=== PATIENT | male | born 1980 | race Caucasian/White ===

== ENCOUNTER 2019-10-16 20:26 | Observation (INO) ==
--- NOTE | 2019-10-16 20:58 | PROVIDER DOCUMENTATION ---
HPI-EENT General - General Chief Complaint: Abscess Stated Complaint: ABNORMAL LABS Time Seen by Provider: 10/16/19 20:41 Source: patient Allergies/Adverse Reactions: Patient Allergies Allergy/AdvReac Type Severity Reaction Status Date / Time No Known Allergies Allergy Verified 10/16/19 20:36 - History of Present Illness-EENT General Nature of Presenting Problem: 39 yom with no PMH presents with c/o sore throat on rec of urgent care, he reports the pain has been present x 2 days and is getting worse. he was seen at urgent care and strep was negative. He reports it is hard to swallow and feels hard to breathe at time. he is in NAD on exam. EENT Location: reports: throat Quality of Pain: reports: burning, fullness Severity: reports: severe Onset/Duration: reports: 2 days ago Timing: reports: still present Prearrival Treatment: Initiated no prearrival treatment Associated Symptoms: reports: tooth pain, voice change - Throat/Dental Throat/Dental Problem Symptoms: reports: sore throat, trouble breathing (at times), throat swelling, unable to swallow Recently seen a dentist or have an appointment?: No Review of Systems - Adult - REVIEW OF SYSTEMS - ADULT Constitutional: reports: no symptoms reported. denies: see HPI, chills, fever, fatique, night sweats, weight gain, weight loss, other Eyes: reports: no symptoms reported. denies: see HPI, discharge, dry eyes, decreased vision, blurred vision, double vision, eye pain, redness, other Ears, Nose, Mouth & Throat: reports: see HPI, throat pain, throat swelling. denies: no symptoms reported, ear discharge, ear pain, hearing loss, tinnitus, epistaxis, sinus problem, nose pain, loose teeth, mouth/dental pain, mouth swelling, hoarseness, other Cardiovascular: reports: no symptoms reported. denies: see HPI, chest pain, edema, heart murmur, irregular heart rate, orthopnea, palpitations, poor circulation, PND, syncope, other Respiratory: reports: no symptoms reported. denies: see HPI, chronic cough, cough, dyspnea on exertion, excessive sputum production, hemoptysis, pleurisy, shortness of breath, wheezing, other Gastrointestinal: reports: no symptoms reported. denies: see HPI, abdominal pain, hematemesis, constipation, diarrhea, difficulty swallowing, frequent heartburn, nausea, poor appetite, rectal bleeding, vomiting, other Genitourinary: reports: no symptoms reported. denies: see HPI, dysuria, discharge, frequency, flank pain, frequent UTI's, hematuria, hesitency, incontinence, urinary retention, urgency, other Musculoskeletal: reports: no symptoms reported. denies: see HPI, bone pain, back pain, frequent leg cramps, joint pain, joint swelling, muscle aches, muscle weakness, neck pain, other Integumentary: reports: no symptoms reported. denies: see HPI, hives, hair loss, itching, mole changes, nail changes, rash, skin sores/ulcer, skin thickening, other Neurological: reports: no symptoms reported. denies: see HPI, ataxia, diz ziness/vertigo, headache/migraines, loss of balance, numbness, paresthesia, seizure, slurred speech, syncope, tremors, other Psychiatric: reports: no symptoms reported. denies: see HPI, anxiety, anti- depressant use, alcohol/drug dependence, depression, emotional problems, i nsomnia, panic attacks, suicidal thoughts, other Endocrine: reports: no symptoms reported. denies: see HPI, change in skin pigment, excessive sweating, goiter, cold intolerance, heat intolerance, increased hunger, increased thirst, polyuria, other Hematologic/Lymphatic: reports: no symptoms reported. denies: see HPI, blood clots, easy bruising, low blood count, lymphedema, prolonged bleeding, swollen lymph nodes, transfusions, other Allergic/Immunologic: reports: no symptoms reported. denies: see HPI, allergic reactions, allergic rhinitis, asthma, eczema, food allergy, frequent infections, hay fever, hives, positive PPD, urticaria, other Past History - Adult - PAST MEDICAL HISTORY-ADULT Review of Records: reports: Nursing Assessment Review, Social history reviewed & non-contributory. Physical Exam- EENT - Physical Exam EENT Initial Vital Signs Reviewed: Yes General Appearance: alert, no apparent distress (on exam sats 94) Eye Exam: bilateral eye: normal inspection, PERRL, EOMI Ear Exam: bilateral ear: auricle normal, canal normal, TM normal Throat Exam: pharynx swelling (r side), voice changes. negative: pharynx normal, mandibular swelling, maxillary swelling, tonsillar exudate Neck: non-tender, full range of motion, supple, lymphadenopathy Respiratory: chest non-tender, lungs clear, normal breath sounds, no pleuratic chest pain, no respiratory distress, no accessory muscle use Cardiovascular: normal peripheral pulses, tachycardia (105) Abdominal Exam: normal bowel sounds, non tender, soft, no organomegaly, no pulsatile mass Lymphatic: no adenopathy Back Exam: normal inspection, no CVA tenderness, no vertebral tenderness Extremity: normal range of motion, non-tender, normal gait Integumentary: normal color, normal turgor, warm/dry Neurologic: grossly normal Psych/Mental Status: normal mood/affect, oriented x 3 Progress - PLAN OF CARE/RESULTS Progress/Plan/Lab Results: Vital Signs - 8 hr 10/16/19 20:30 Temperature 99.1 F Pulse Rate 109 H Respiratory Rate 18 Blood Pressure 120/73 O2 Sat by Pulse Oximetry 92 L Laboratory Results - last 24 hr 10/16/19 10/16/19 10/16/19 20:58 20:58 20:58 WBC 11.01 H RBC 5.06 Hgb 15.1 Hct 44.9 MCV 88.7 MCH 29.8 MCHC 33.6 RDW Std Deviation 13.6 Plt Count 339 MPV 9.8 Immature Gran % (Auto) 0.2 Neut % (Auto) 65.8 Lymph % (Auto) 20.9 Dukes % (Auto) 11.1 H Eos % (Auto) 1.6 Baso % (Auto) 0.4 Immature Gran # (Auto) 0.02 Neut # (Auto) 7.25 H Lymph # (Auto) 2.30 Dukes # (Auto) 1.22 H Eos # (Auto) 0.18 Baso # (Auto) 0.04 Sodium 139 Potassium 3.9 Chloride 102 Carbon Dioxide 21 L Anion Gap 16 BUN 13 Creatinine 1.0 Estimated GFR/1.73 m2 > 60 BUN/Creatinine Ratio 13 Glucose 96 Calculated Osmolality 278 Calcium 9.2 Total Bilirubin 0.50 AST 21 ALT 29 Alkaline Phosphatase 59 Total Protein 7.8 Albumin 4.4 Globulin 3.0 Albumin/Globulin Ratio 1.0 Monoscreen NEGATIVE Orders Category Date Time Status CT NECK W/CONTRAST [CT] Stat Exams 10/16/19 20:41 Taken CBC WITH ELECTRONIC DIFF [HEME] Stat Lab 10/16/19 20:58 Completed COMPREHENSIVE METABOLIC PANEL [CHEM] Stat Lab 10/16/19 20:58 Completed MONO SCREEN [SERO] Stat Lab 10/16/19 20:58 Completed Ampicillin/Sulbactam 3 gm/Ns [Unasyn 3 gm/Ns] Med 10/16/19 23:30 Ordered 3 gm in 100 ml IV Q6H Clindamycin 600 mg/D5w Med 10/16/19 23:04 Discontinued 600 mg in 50 ml .ROUTE As directed Clindamycin 600 mg/Ns Med 10/16/19 23:01 Discontinued 600 mg in 50 ml IV NOW Dexamethasone [Decadron] Med 10/16/19 21:59 Discontinued 8 mg IV NOW ONE Result Diagrams: 10/16/19 20:58 10/16/19 20:58 - CT/MRI 1 CT Study: Neck Impression: See EMR Report (1. Tonsillar abscess. 1.3 x1.4 cm) - CONSULTS/PCP/HOSPITALIST Notification #1 *Consult/PCP/Hospitalist*: Dr. Ritter Time Discussed: 23:16 Consult Disposition: Admit (DGM) #2 Consult: Dr Mariee Time Discussed: 23:20 Reason/Comments: Advised pt will have to stay here in ER until bed opens Consult Disposition: Admit Departure - Departure Date of Disposition Decision: 10/16/19 Time of Disposition Decision: 23:21 DIAGNOSIS: Tonsillar abscess Disposition: ADMITTED INPATIENT 09 Certified Medical Emergency: Emergent Condition: Fair Referrals and Follow-Ups: None,PCP [Primary Care Provider] - - Critical Care Note This patient required my direct & personal management of CC.: No Attestation - Physician/ GORGE Attestation Patient care was provided by Advanced Practice Provider:: Yes Advanced Practice Provider documentation review:: The Mid-level provider documentation, treatment plan and medical decision making was reviewed by the physician who agrees with all treatment and medical decision making by the MLP. The physician spent face to face time with patient:: Yes Advanced Practice Provider documentation review:: Supervising physician onsite and consulted in the evaluation and care of this patient. The physician did have a face to face encounter with the patient.
[2019-10-16 21:34] LABS: BASO# 0.04 X1000 (0.0-0.2); BASO% 0.4 % (0.0-0.8); EOS# 0.18 X1000 (0.0-0.7); EOS% 1.6 % (0.0-10.0); HEMATOCRIT 44.9 % (42.0-52.0); HEMOGLOBIN 15.1 g/dL (14.0-18.0); IMM GRAN# 0.02 X1000 (0.0-0.04); IMM GRAN% 0.2 % (0.0-0.5); LYMPH% 20.9 % (20.5-51.1); MCH 29.8 PG (27-31); MCHC 33.6 g/dL (33-37); MCV 88.7 FL (81-99); MONO# 1.22 X1000 (0.11-0.59); MONO% 11.1 % (1.7-9.3); MPV 9.8 FL (7.4-10.4); NEUT# 7.25 X1000 (1.4-6.5); NEUT% 65.8 % (42.2-75.2); PLT 339 X1000 (130-400); RBC 5.06 XMIL (4.7-6.1); RDW 13.6 % (11.5-14.5); WBC 11.01 X1000 (4.8-10.8)
[2019-10-16 21:49] LABS: AGAP 16; ALBUMIN 4.4 g/dL (3.5-5.0); ALKALINE PHOSPHATASE 59 U/L (32-122); BUN 13 mg/dL (8-22); CALCIUM 9.2 mg/dL (8.8-10.2); CHLORIDE 102 mmol/L (98-107); COSMO 278; ESTIMATED GFR > 60; GLUCOSE 96 mg/dL (70-104); GOT 21 U/L (10-34); GPT 29 U/L (10-44); POTASSIUM 3.9 mmol/L (3.5-5.1); SODIUM 139 mmol/L (136-145); TCO2 21 mmol/L (25-35); TOTAL PROTEIN 7.8 g/dL (6.3-8.3)
[2019-10-16] MEDS ORDERED: DECADRON IV ONE (21:59)
[2019-10-16] MEDS ORDERED: CLINDAMYCIN 600 MG/NS 600 MG/50 ML IVPB IV ONE (23:01)
[2019-10-16] MEDS ORDERED: CLINDAMYCIN 600 MG/D5W 600 MG/50 ML IVPB ONE (23:04)
[2019-10-16] MEDS: UNASYN 3 GM/NS 3 GM/100 ML IVPB IV SCH (23:45)
[2019-10-16] MEDS ORDERED: NS 100 ML ONE (23:56)
[2019-10-16] MEDS ORDERED: UNASYN ONE (23:56)
[2019-10-17] MEDS ORDERED: TYLENOL PO PRN (00:23)
[2019-10-17] MEDS ORDERED: ZOFRAN IV PRN (00:23)
[2019-10-17] MEDS ORDERED: NS 1,000 ML IV SCH (00:30)
[2019-10-17] MEDS ORDERED: MORPHINE IV PRN (00:44)
[2019-10-17] MEDS: UNASYN 3 GM/NS 3 GM/100 ML IVPB IV SCH ×2 (04:46→12:40)
[2019-10-17] MEDS ORDERED: CLINDAMYCIN 600 MG/D5W 600 MG/50 ML IVPB IV SCH (08:00)
--- NOTE | 2019-10-17 08:03 | Diag Imaging Result Doc PS360 ---
EXAM: CT NECK W/CONTRAST 10/16/2019 HISTORY: possible tonsillar abscess TECHNIQUE: This exam was performed using automated exposure control, adjustment of mA or kV according to patient size, and/or use of iterative reconstruction technique. COMMENT: There are no previous studies available for comparison. There is a somewhat poorly defined fluid collection present in the right tonsillar pillar region measuring 14 to 15 mm in diameter with peripheral enhancement. This is consistent with a tonsillar abscess. There is slight effacement of the right fossa of Rosenmuller. The epiglottis is normal in appearance. The piriform sinuses and larynx are unremarkable. The salivary glands are symmetrical in appearance. The right jugulodigastric node is slightly enlarged measuring over 13 mm in diameter. Otherwise there is no evidence of significant adenopathy. The regional skeleton is intact. IMPRESSION: Right tonsillar abscess. Electronically signed by Lon Bush 10/17/2019 8:01 AM
[2019-10-17] MEDS ORDERED: XYLOCAINE 1%/EPI 1:100,000 INJ ONE (08:28)
--- NOTE | 2019-10-17 08:36 | HISTORY AND PHYSICAL ---
CHIEF COMPLAINT: Sore throat. HISTORY OF PRESENT ILLNESS: Mr. Frazier is a 39-year-old male who went to urgent care with complaint of sore throat. He had it for roughly 2 days, and it was getting worse. He was strep negative, and it was becoming hard to swallow and felt as if he was having a hard time breathing. He also was having some difficulty swallowing thicker liquids like milk. In the emergency room, a CT scan was obtained which showed a 1.3 x 1.[address] Ritter was spoken to who wanted him admitted to [facility] [place]. He will be placed on the Medical Floor and started on antibiotics. PAST MEDICAL HISTORY: None to note. PAST SURGICAL HISTORY: Left elbow surgery, left ear surgery. SOCIAL HISTORY: Lives at home with family. No tobacco, alcohol or illicit drugs. FAMILY HISTORY: Denies any chronic illnesses in first degree relatives. ALLERGIES: No known drug allergies. HOME MEDICATIONS: Testosterone cipionate 200 mg IM as directed. REVIEW OF SYSTEMS: A 14-point review of systems was conducted with the patient and pertinent positives listed above in HPI. All other systems reviewed and found to be negative. PHYSICAL EXAMINATION: VITAL SIGNS: Temperature 97.7, pulse 78, respirations 18, blood pressure 105/70, oxygen saturation 94% on room air. GENERAL: A pleasant 39-year-old male lying on the Medical Floor bed. He is alert and oriented x3, in no acute distress. HEENT: Head is atraumatic and normocephalic. Pupils are equal, round and reactive to light. Extraocular eye movements intact. Sclerae anicteric. Conjunctivae pink. Oral mucosa is moist. NECK: Supple. Right neck tenderness to palpation. Right tonsillar edema noted with erythema and no exudate. Trachea is midline. No cervical lymphadenopathy. CARDIAC: S1 and S2 appreciated. No murmurs, gallops or rubs. LUNGS: Clear to auscultation bilaterally. No rhonchi, wheezes or rales. Symmetric rise and fall with respirations. ABDOMEN: Soft, nondistended and nontender. Bowel sounds present in all 4 quadrants and normoactive. No pulsatile mass or organomegaly. EXTREMITIES: No cyanosis, clubbing or edema. There are 2+ pedal pulses. NEUROLOGICAL: Alert and oriented x3. No focal motor deficits. Otherwise nonfocal examination. DIAGNOSTIC DATA: CT showed tonsillar abscess. Laboratory data showed WBC of 11.01. All other labs within normal limits. [place] screen was negative. ASSESSMENT: Tonsillar abscess. PLAN: Admit the patient to the Medical Floor. Morphine and Tylenol as needed for pain. N.p.o. Consult Dr. Ritter. We will give clindamycin and Unasyn. IV normal saline 80 mL an hour. Further recommendations based on the patient's clinical course. Dictated by MAYA Ty for Aleksandar Mariee MD I have performed a face to face diagnostic evaluation. Labs/xrays- reviewed. Exam- ENT- phayngeal erythema, Chest- clear, CV-regular. A/P- Tonsillar abscess- Admit, NPO, IV fluids, ENT consult. Dr. Mariee cc: MAYA Ty MD [facility]
--- NOTE | 2019-10-17 10:02 | PROGRESS NOTE ---
DATE: 10/17/2019 Mr. Frazier was admitted yesterday. He has no primary care physician. He is a 39-year-old male who went to urgent care with a complaint of sore throat on the right side and a cough for a couple days. He was tested and the throat culture was strep negative. It became hard to swallow, having difficulty swallowing thicker liquids like milk. In the emergency room, CT scan showed a 1.3 x 1.[address] Ritter was spoken to and he is planning on coming in and doing a drainage of that abscess. He was put on antibiotics and seems to be feeling better today. He is getting clindamycin 600 mg IV q.6 and ampicillin, sulbactam 3 g IV q.6. On exam, you can tell there is some swelling in the right tonsil. Uvula deviated to the left. There is some tonsillar lymph node on the right side and in the right jugular chain, palpable adenopathy. cc: Neno Bobo MD
--- NOTE | 2019-10-17 10:12 | OPERATIVE NOTE ---
PROCEDURE DATE: 10/17/2019 PREOPERATIVE DIAGNOSIS: Right peritonsillar abscess. POSTOPERATIVE DIAGNOSIS: Right peritonsillar abscess. PROCEDURE PERFORMED: Incision and drainage of right peritonsillar abscess. COMPLICATIONS: No complications. ANESTHESIA: Local. DESCRIPTION OF PROCEDURE: A CT scan was performed last night in the emergency room at [place]. This was reviewed and showed a roughly 3 x 1 cm collection of pus in the right superior half of the peritonsillar fossa. No shift, no midline, no extension. The patient was identified, consented. Options were reviewed. He has reclined in his hospital bed. With a tongue blade and a headlight, the oropharynx was visualized. It was noted to have a mass effect in the right superior tonsil region. Lidocaine 1% with 1:100,000 epinephrine was injected into the anterior tonsil pillar mucosa. An incision was created with an 11 blade and a tonsil clamp was used to probe the region until a significant amount of pus was noted to extrude from the abscess. Multiple attempts at widening this were performed intermittently as the pus was expelled. He tolerated the procedure well and was given postop instructions and a followup for my office on Friday. cc: Chad Ritter MD
[2019-10-17] MEDS: PERCOCET-5 PO PRN ×2 (10:20→14:33)
--- NOTE | 2019-10-17 13:41 | DISCHARGE SUMMARY ---
ADMISSION DATE: 10/16/2019 DISCHARGE DATE: 10/17/2019 This is a 39-year-old, no primary care physician, went to Urgent Care with a complaint of sore throat. He has had a sore throat for roughly 2 days. His swab for strep was negative, but he had a hard time swallowing and so presented to the emergency room. CT scan obtained. We saw 1.3 x 1.4 cm tonsillar abscess, and so he was put on antibiotics. He did feel better the next morning. Dr. Nick Ritter of Ears, Nose and Throat drained the right peritonsillar abscess in the room. No complications. He had roughly a 3 x 1 cm collection of pus in the right superior half of the peritonsillar fossa, and excision was created, and he tolerated this well. Pus was expelled. So he wanted to go home. He is not allergic to anything. We will let him go home. Discharge him on some antibiotics by mouth. The only home medicine he takes his testosterone, so I am going to put him on Augmentin 875 mg twice a day for another 7 days and follow up with Dr. Ritter. cc: Neno Bobo MD
[2019-10-17 14:02] VITALS: BP 112/63
== END 2019-10-17 14:42 | disposition home or self-care (01) ==
LOC: P.ED 20:26 → SUATTDRO 20:27 → 4N 20:27 → INTOOBSV 20:27 → 4N 10-17 00:40
PROVIDERS: ATTEND Emergency Medicine